=== PATIENT | female | born 1945 | race Caucasian/White ===

== ENCOUNTER → 2017-09-12 | Outpatient (CLI) | payer MEDICARE, BC ==
[2017-09-12 12:29] LABS: ISTAT CREATININE 0.8 mg/dL (0.6-1.1)
[2017-09-12] MEDS: GADOBUTROL 7.5 MMOL/7.5 ML VIAL IV (12:29)
== END | disposition home or self-care (01) ==
LOC: KCIC MRI 11:23
DX: H91.90 Unspecified hearing loss, unspecified ear (principal)
CPT/HCPCS: 70553; 82565; A9585